=== PATIENT | male | born 1995 | race Caucasian/White ===

== ENCOUNTER → 2021-03-07 | Day surgery (SDC) | payer BC ==
[~2021-03-07] MED LIST: Clindamycin Phosphate in D5W 600 MG in Premix Bag 1 BAG IV ONE; Flumazenil 0.1 MG/ML 5 ML MDV ONE; Ketamine 200 MG/20 ML MDV ONE; Ketorolac 30 MG/ML SDV ONE; Lactated Ringers 1,000 ML IV SCH; Lidocaine 0.5% 50 ML SDV ONE; Lidocaine 1% 30 ML SDV INJECT ONE; Midazolam 1 MG/ML 2 ML SDV ONE; Ondansetron 4 MG/2 ML SDV ONE; Propofol 200 MG/20 ML SDV ONE; fentaNYL 100 MCG/2 ML SDV ONE
--- NOTE | 2021-03-07 13:13 | OR ---
DATE OF OPERATION: 03/07/2021 PREOPERATIVE DIAGNOSIS: GANGLION CYST, RIGHT WRIST DORSAL SURFACE. POSTOPERATIVE DIAGNOSIS: GANGLION CYST, RIGHT WRIST DORSAL SURFACE. SURGEON: Syed Wiggins MD PROCEDURE: EXCISION OF GANGLION CYST, RIGHT DORSAL WRIST. INDICATIONS: This 25-year-old male has symptomatic large ganglion cyst on the right wrist. This is in the distal wrist between probably the radius and metacarpal and carpal bones. It especially bothers him on dorsiflexion of the wrist. DESCRIPTION OF PROCEDURE: After adequate preparation with a Luis block in the right arm, a longitudinal incision was made over the cyst. This was taken down to the cyst wall itself. The extensor tendons were retracted laterally and the cyst was then dissected free down to the wrist bones. This was able to be excised by sharp dissection. There was no apparent communication between the wrist and the cyst. There was not anything for me to sew closed. The hemostasis was adequate with the Luis block. The wound was closed using interrupted 4-0 Vicryl for the deeper skin layer and 4-0 Vicryl for the skin itself. BPB/MODL /[id number]
== END ==
LOC: CC.SDS 09:45
PROVIDERS: ATTEND Surgery
DX: M67.431 Ganglion, right wrist (principal); Z88.1 Allergy status to other antibiotic agents; Z88.0 Allergy status to penicillin
CPT/HCPCS: 25111; J3490; J7120; 01810; J1885; J2250; J2405; J2704; J3010